=== PATIENT | male | born 1975 | race African-American/Black ===

== ENCOUNTER → 2016-11-29 | Day surgery (SDC) | payer OTHER ==
[~2016-11-29] VITALS: Ht 177.8 cm; Wt 100.7 kg
[~2016-11-29] MED LIST: ACETAMINOPH W/CODEINE #3 TAB UD PO PRN; BUPIVACAINE HCL 0.5% 10 ML VIAL XX ONE; BUPIVACAINE/EPIN 0.5% 30 ML VIAL As Ordered ONE; EPINEPHrine 1MG/ML INJ 30ML MD-VIAL As Ordered ONE; EPINEPHrine 1MG/ML INJ 30ML MD-VIAL XX ONE; HYDROmorphone HCL 2 MG/ML 1ML VIAL (J1170) As Ordered ONE; LIDOCAINE W/EPINEPHRINE 1% 20ML VIAL As Ordered ONE; LIDOCAINE W/EPINEPHRINE 1% 20ML VIAL XX ONE; LR 1,000 ML IV SCH; METHYLENE BLUE 1% 10 ML VIAL (Q9968) XX ONE; METOCLOPRAMIDE INJ 10MG/2ML VIAL (J2765) As Ordered ONE; MIDAZOLAM INJ 2 MG/2 ML VIAL (J2250) As Ordered ONE; ONDANSETRON 4MG/2ML VIAL (J2405) As Ordered ONE; ONDANSETRON 4MG/2ML VIAL (J2405) IV PRN; PERCOCET 5MG/325MG TAB PO PRN; PHENYLephrine HCL 500 MCG/5 ML (100MCG/ML) SYRINGE (J2370) As Ordered ONE; PROPOFOL 200 MG/20 ML VIAL As Ordered ONE; ROCURONIUM BROMIDE 50 MG/5 ML VIAL As Ordered ONE; dexameTHASONE 4 MG/ML 1ML VIAL (J1100) As Ordered ONE; ePHEDrine SULFATE 25 MG/5 ML(5MG/ML) SYRINGE As Ordered ONE; fentaNYL 100 MCG/2 ML INJECTION (J3010) As Ordered ONE; fentaNYL 100 MCG/2 ML INJECTION (J3010) IV PRN
[2016-11-29] MEDS: LR 1,000 ML IV SCH ×2 (07:00→07:57)
[2016-11-29 13:05] VITALS: BP 126/73
--- NOTE | 2016-11-29 14:02 | RO ---
DATE OF PROCEDURE: 11/29/2016 PREPROCEDURE DIAGNOSES: Recurrent tonsillitis, nasal septal deviation, chronic rhinitis. POSTPROCEDURE DIAGNOSES: Recurrent tonsillitis, nasal septal deviation, chronic rhinitis. PROCEDURE: Tonsillectomy, septoplasty, bilateral turbinectomy. SURGEON: Johann Goodrich MD DISEASE CASE MANAGER RN: ANESTHESIA: General. DESCRIPTION OF PROCEDURE: Under general anesthesia, the patient was draped in the usual manner. A Edmond-Phillip mouth gag was inserted. The tonsillar area was infiltrated with lidocaine and 0.5% Marcaine. Using a Coblator setting at 6 and 4, the tonsil was dissected free from the bed on both sides. The areas were cauterized with a setting of 4 on the Coblator. No blood loss. Nasogastric tube was passed to suction the upper esophagus. The Edmond-Phillip mouth gag was removed. I did suction the upper esophagus with a nasogastric tube. I used pledgets of adrenaline 1:100,000 and infiltrated with Lidocaine and epinephrine. An incision was made on the septum on the left side and elevated subperichondrial, periosteal plane. I removed a portion of the cartilage and bone, which were deviated toward that left side. Once this was done, I closed the incision with interrupted #4-0 Vicryl. Incision made in the inferior turbinate on both sides and using the , I removed the julisa anteriorly on both sides. The patient tolerated the procedure well. The patient was extubated and transferred to the recovery room in excellent condition. Less than 20 mL of estimated blood loss.
== END | disposition home or self-care (01) ==
LOC: M SDC 07:01
PROVIDERS: ATTEND Otolaryngology
DX: J35.01 Chronic tonsillitis (principal); J34.2 Deviated nasal septum; J31.0 Chronic rhinitis; F43.10 Post-traumatic stress disorder, unspecified; G47.9 Sleep disorder, unspecified
CPT/HCPCS: 30130; 30520; 42826; 88300; 88302; J1100; J1170; J2250; J2370; J2405; J2765; J3010; Q9968

== ENCOUNTER → 2016-12-05 | Outpatient (REF) ==
--- NOTE | 2016-12-06 05:48 | REP ---
Clinical: Pain and disability. Technique: Internal rotation, external rotation, and Y view. Findings: A small 2 mm periarticular calcification is identified at the acromioclavicular joint. The examination is otherwise normal and without further overt degenerative changes appreciated. No acute or healed fracture. No evidence for dislocation. Surrounding soft tissues unremarkable. Impression: Very minimal age-related degenerative changes suggested. Signed by Noah Dexter MD 12/06/2016 05:39 A
--- NOTE | 2016-12-06 05:51 | REP ---
Clinical: Pain and disability. Technique: AP, lateral, flexion/extension, bilateral oblique, and open mouth views. Findings: Advanced focal degenerative disc osteophyte complex at the C6-7 and C7-T1 levels includes osteophyte formation, endplate sclerosis/irregularity, and disc space narrowing. Remainder examination is relatively normal for age. No acute fracture / compression injury. Alignment and lordosis maintained. Impression: Advanced focal degenerative disc disease at the C6-7 and C7-T1 levels. Signed by Noah Dexter MD 12/06/2016 05:42 A
--- NOTE | 2016-12-06 05:53 | REP ---
Clinical: Pain and disability. Technique: Ganesh Lora, and ISRA, and lateral views of the sinuses. Findings: The osseous structures are intact and normal. Nasal septum is midline. There appears to be mucosal thickening to the left maxillary sinus and to a lesser extent possibly involving the right maxillary sinus and frontal sinuses. No fluid level. No foreign body. Impression: Mucoperiosteal changes involving the left maxillary sinus and possibly right maxillary sinus and frontal sinuses. Signed by Noah Dexter MD 12/06/2016 05:44 A
--- NOTE | 2016-12-06 05:54 | REP ---
Clinical: Chest pain . Comparison: None . Technique: PA and lateral. Findings: The mediastinum and cardiac silhouette are normal. The lung mojica are clear and without acute consolidation, effusion, or pneumothorax. The skeletal structures are intact and normal. Impression: 1. No acute cardiopulmonary process. Signed by Noah Dexter MD 12/06/2016 05:44 A
--- NOTE | 2016-12-06 05:55 | REP ---
Clinical: Pain and disability. Technique: AP and lateral views of the right and left knee. Findings: Mild arthritic degenerative changes include increased sclerosis to the bilateral tibial surfaces, spurring to the left tibial spines as well as spurring along the margins of the bilateral patella. Remainder examination appears normal for age. Impression: Mild degenerative changes. Signed by Noah Dexter MD 12/06/2016 05:47 A
--- NOTE | 2016-12-06 06:37 | REP ---
Clinical: Pain and disability. Technique: AP, lateral, coned-down views of the lumbosacral spine. Findings: Endplate sclerosis and anterior spurring with disc space narrowing at the L1-2 level. Remainder of the lumbosacral spine appears normal. Impression: Mild degenerative changes at the L1-2 level Signed by Noah Dexter MD 12/06/2016 06:29 A
== END ==
LOC: M SMT 15:29
PROVIDERS: ATTEND Internal Medicine
DX: Z02.71 Encounter for disability determination (principal)

== ENCOUNTER → 2018-04-29 | Outpatient (REF) | payer OTHER ==
[2018-04-29 13:26] LABS: CHOLESTEROL LEVEL 212 MG/DL (<200); CHOLESTEROL RISK RATIO 3.312 (<5); HDL CHOLESTEROL 64 MG/DL (>40); NON-HDL-C 148 MG/DL; TRIGLYCERIDES LEVEL 75 MG/DL (<150)
[2018-04-29 14:04] LABS: HIV 1&2 SCREEN CENTAUR NEGATIVE (NEGATIVE)
[2018-04-29 14:24] LABS: ESTIMATED AVERAGE GLUCOSE 126 MG/DL (60-110)
[2018-04-29 16:48] LABS: CHLAMYDIA DNA AMPLIFICATION NEGATIVE (NEGATIVE); GC DNA AMPLIFICATION NEGATIVE (NEGATIVE)
== END ==
LOC: M SFHCPLAZ 09:18
DX: Z71.1 Person with feared health complaint in whom no diagnosis is made (principal); Z13.1 Encounter for screening for diabetes mellitus; Z13.220 Encounter for screening for lipoid disorders

== ENCOUNTER 2018-07-03 11:16 | Emergency (ER) | payer OTHER ==
[2018-07-03] MEDS: LIDOCAINE 2% W/EPIN INJ 20ML **PRES FREE INJ (12:45)
== END 2018-07-03 13:27 | disposition home or self-care (01) ==
LOC: M ED 11:16
DX: S61.412A Laceration without foreign body of left hand, initial encounter (principal); W26.9XXA Contact with unspecified sharp object(s), initial encounter; Y92.090 Kitchen in other non-institutional residence as the place of occurrence of the external cause; Y93.89 Activity, other specified; Y99.9 Unspecified external cause status; M06.9 Rheumatoid arthritis, unspecified
CPT/HCPCS: 12001

== ENCOUNTER → 2018-12-05 | Outpatient (REF) | payer OTHER ==
[2018-12-05 13:52] LABS: HEMOGLOBIN A1c 6.1 %
== END ==
LOC: M SFHCPLAZ 11:32
PROVIDERS: ATTEND Family Medicine
DX: R73.03 Prediabetes (principal)

== ENCOUNTER → 2018-12-11 | Outpatient (CLI) | payer OTHER ==
--- NOTE | 2018-12-11 22:04 | REP ---
Clinical: Paresthesia. Technique: AP, lateral, flexion/extension, bilateral oblique, open-mouth and swimmer's views of the cervical spine. Comparison: 12/05/2016. Findings: Moderate to early advanced degenerative disc osteophyte complex at C6-7 and C7-T1 are again identified with endplate sclerosis and disc space narrowing. Mild/moderate disc osteophyte complex noted at the C5-6 level which represents a relatively new finding. Alignment is maintained. There is no acute fracture / compression injury or subluxation. Open mouth view demonstrates normal C1-C2 articulation and odontoid process. Oblique views demonstrate patent neural foramen. Impression: Moderate/advanced degenerative changes at the C5-6 through C7-T1 levels. Electronically Signed by Noah Dexter MD 12/11/2018 09:56 P
== END ==
LOC: M RAD 09:18
PROVIDERS: ATTEND Family Medicine
DX: R20.0 Anesthesia of skin (principal); M50.30 Other cervical disc degeneration, unspecified cervical region

== ENCOUNTER → 2019-01-21 | Outpatient (REF) | payer OTHER ==
[2019-01-21 14:22] LABS: HEMOGLOBIN A1c 5.9 %
== END ==
LOC: M SFHCPLAZ 10:38
PROVIDERS: ATTEND Family Medicine
DX: R73.03 Prediabetes (principal)

== ENCOUNTER 2022-04-03 15:40 | Emergency (ER) | payer OTHER ==
[~2022-04-03] VITALS: Ht 177.8 cm; Wt 130.3 kg
[2022-04-03 15:48] VITALS: BP 141/78
[2022-04-03] MEDS ORDERED: NS 1,000 ML IV ONE (15:50)
[2022-04-03] MEDS ORDERED: ceFAZolin SOD 2 GM in IV 1 EA IV ONE (16:05)
[2022-04-03] MEDS ORDERED: BOOSTRIX/ADACEL VACCINE (DIPHTH/PERTUSS/ACELL/TETANUS) 0.5ML SYR IM ONE (16:05)
[2022-04-03] MEDS ORDERED: ISOVUE-370 76% 100ML VIAL As Ordered ONE (16:08)
[2022-04-03 16:23] LABS: BASO % 0.4 % (0.0-1.0); EOS # 0.1 10^3/uL (0.0-0.5); HEMATOCRIT 41.3 % (42.0-52.0); HEMOGLOBIN 14.2 g/dl (13.5-17.5); LYMPH # 2.7 10^3/uL (1.5-5.0); LYMPH % 38.5 % (24.0-44.0); MEAN CORPUSCULAR HEMOGLOBIN 29.7 pg (27.0-33.0); MEAN CORPUSCULAR HGB CONC 34.4 g/dl (32.0-36.5); MEAN CORPUSCULAR VOLUME 86.4 fl (80.0-96.0); MONO # 0.8 10^3/uL (0.0-0.8); MONO % 11.2 % (2.0-8.0); NEUTROPHILS # 3.4 10^3/uL (1.5-8.5); NEUTROPHILS % 48.6 % (36.0-66.0); PLATELET COUNT, AUTOMATED 305 10^3/uL (150-450); RED BLOOD COUNT 4.78 10^6/uL (4.30-6.10); WHITE BLOOD COUNT 6.9 10^3/uL (4.0-10.0)
[2022-04-03 16:41] LABS: ALBUMIN 3.7 GM/DL (3.2-5.2); ALT/SGPT 43 U/L (12-78); AMYLASE 120 U/L (25-115); BILIRUBIN,DIRECT 0.1 MG/DL (0.0-0.2); BILIRUBIN,TOTAL 0.3 MG/DL (0.2-1.0); BLOOD UREA NITROGEN 13 MG/DL (7-18); CALCIUM LEVEL 9.1 MG/DL (8.5-10.1); CARBON DIOXIDE LEVEL 24 MEQ/L (21-32); CHLORIDE LEVEL 109 MEQ/L (98-107); CREATININE FOR GFR 1.28 MG/DL (0.70-1.30); GLOMERULAR FILTRATION RATE > 60.0 (>60); GLUCOSE, FASTING 117 MG/DL (70-100); LIPASE 111 U/L (73-393); SODIUM LEVEL 140 MEQ/L (136-145); TOTAL PROTEIN 6.8 GM/DL (6.4-8.2)
[2022-04-03 16:50] LABS: INR 1.09; PROTHROMBIN TIME 14.5 SECONDS (12.7-14.5)
[2022-04-03 16:51] LABS: PARTIAL THROMBOPLASTIN TIME 24.2 SECONDS (25.9-37.0)
[2022-04-03 17:46] LABS: RSV AMPLIFICATION NEGATIVE (NEGATIVE)
== END 2022-04-03 18:50 | disposition home or self-care (01) ==
LOC: M ED 15:40
DX: S81.831A Puncture wound without foreign body, right lower leg, initial encounter (principal); W32.0XXA Accidental handgun discharge, initial encounter; Y92.89 Other specified places as the place of occurrence of the external cause; Y99.0 Civilian activity done for income or pay; J30.2 Other seasonal allergic rhinitis
CPT/HCPCS: 73564; 73590; 73706; 80047; 80048; 80076; 82150; 83605; 83690; 85025; 85610; 85730; 86850; 86900; 86901; 87631; 90471; 90715; 93041; 94760; 96365; 96366; 99284; J0690; Q9967

== ENCOUNTER 2022-05-17 08:45 | Outpatient (RCR) | payer OTHER | END 2022-05-18 | LOC: M PT 08:45 | PROVIDERS: ATTEND Orthopaedic Surgery Hand Surgery | DX: S81.831D Puncture wound without foreign body, right lower leg, subsequent encounter (principal) ==

== ENCOUNTER 2022-06-13 14:30 | Outpatient (RCR) | payer OTHER | END 2022-06-18 | LOC: M PT 14:30 | PROVIDERS: ATTEND Orthopaedic Surgery Hand Surgery | DX: S81.831D Puncture wound without foreign body, right lower leg, subsequent encounter (principal) ==

== ENCOUNTER → 2023-09-20 | Outpatient (CLI) | payer OTHER ==
[2023-09-20 09:36] LABS: BASO % 0.4 % (0.0-1.0); EOS % 0.6 % (0.0-3.0); HEMATOCRIT 44.6 % (42.0-52.0); HEMOGLOBIN 15.1 g/dl (13.5-17.5); LYMPH # 1.9 10^3/uL (1.5-5.0); LYMPH % 27.7 % (24.0-44.0); MEAN CORPUSCULAR HEMOGLOBIN 29.7 pg (27.0-33.0); MEAN CORPUSCULAR HGB CONC 33.9 g/dl (32.0-36.5); MEAN CORPUSCULAR VOLUME 87.8 fl (80.0-96.0); MONO # 0.6 10^3/uL (0.0-0.8); MONO % 9.3 % (2.0-8.0); NEUTROPHILS # 4.2 10^3/uL (1.5-8.5); NEUTROPHILS % 61.7 % (36.0-66.0); PLATELET COUNT, AUTOMATED 292 10^3/uL (150-450); RED BLOOD COUNT 5.08 10^6/uL (4.30-6.10); WHITE BLOOD COUNT 6.8 10^3/uL (4.0-10.0)
[2023-09-20 09:57] LABS: ALBUMIN 4.1 G/DL (3.2-5.2); ALKALINE PHOSPHATASE 51 U/L (46-116); ALT/SGPT 40 U/L (7.0-40); AST/SGOT 22 U/L (<34); BILIRUBIN,TOTAL 0.5 MG/DL (0.3-1.2); BLOOD UREA NITROGEN 15 MG/DL (9-23); CALCIUM LEVEL 9.8 MG/DL (8.5-10.1); CARBON DIOXIDE LEVEL 28 MMOL/L (20-31); CHLORIDE LEVEL 105 MMOL/L (98-107); CHOLESTEROL LEVEL 215 MG/DL (<200); CHOLESTEROL RISK RATIO 3.62 (<5); CREATININE FOR GFR 1.11 MG/DL (0.70-1.30); GLOMERULAR FILTRATION RATE > 60.0 (>60); GLUCOSE, FASTING 100 MG/DL (60-100); HDL CHOLESTEROL 59.3 MG/DL (>40); LDL CHOLESTEROL 141.9 MG/DL (<100); NON-HDL-C 155.7 MG/DL; POTASSIUM SERUM 4.4 MMOL/L (3.5-5.1); SODIUM LEVEL 139 MMOL/L (136-145); TOTAL PROTEIN 7.2 G/DL (5.7-8.2); TRIGLYCERIDES LEVEL 69 MG/DL (<150)
[2023-09-20 09:59] LABS: FREE T4 0.87 NG/DL (0.89-1.76); THYROID STIMULATING HORMONE 0.969 uIU/ML (0.55-4.78)
== END ==
LOC: M LAB 08:19
PROVIDERS: ATTEND Nurse Practitioner Family
DX: E78.2 Mixed hyperlipidemia (principal); R73.03 Prediabetes; K21.9 Gastro-esophageal reflux disease without esophagitis

== ENCOUNTER → 2023-11-06 | Outpatient (CLI) | payer OTHER | LOC: M RAD 07:52 | PROVIDERS: ATTEND Nurse Practitioner Family | DX: M50.323 Other cervical disc degeneration at C6-C7 level (principal); M99.61 Osseous and subluxation stenosis of intervertebral foramina of cervical region ==

== ENCOUNTER → 2023-12-14 | Outpatient (CLI) | payer OTHER | LOC: M PLARAD 09:55 | PROVIDERS: ATTEND Nurse Practitioner Family | DX: M47.22 Other spondylosis with radiculopathy, cervical region (principal); M48.02 Spinal stenosis, cervical region; M50.121 Cervical disc disorder at C4-C5 level with radiculopathy; M50.122 Cervical disc disorder at C5-C6 level with radiculopathy; M50.21 Other cervical disc displacement, high cervical region ==

== ENCOUNTER → 2024-05-21 | Outpatient (CLI) | payer OTHER | LOC: M SLEEP HO 11:04 | PROVIDERS: ATTEND Family Medicine | DX: R06.83 Snoring (principal) ==

== ENCOUNTER → 2024-10-23 | Outpatient (CLI) | payer OTHER ==
[2024-10-24 09:50] LABS: BASO % 0.6 % (0.0-1.0); EOS % 0.5 % (0.0-3.0); HEMATOCRIT 45.1 % (42.0-52.0); HEMOGLOBIN 14.7 g/dl (13.5-17.5); LYMPH % 29.9 % (24.0-44.0); MEAN CORPUSCULAR HEMOGLOBIN 29.3 pg (27.0-33.0); MEAN CORPUSCULAR HGB CONC 32.6 g/dl (32.0-36.5); MEAN CORPUSCULAR VOLUME 89.8 fl (80.0-96.0); MONO # 0.8 10^3/uL (0.0-0.8); MONO % 11.6 % (2.0-8.0); NEUTROPHILS # 3.8 10^3/uL (1.5-8.5); NEUTROPHILS % 57.1 % (36.0-66.0); PLATELET COUNT, AUTOMATED 325 10^3/uL (150-450); RED BLOOD COUNT 5.02 10^6/uL (4.30-6.10); WHITE BLOOD COUNT 6.7 10^3/uL (4.0-10.0)
[2024-10-24 09:54] LABS: ALBUMIN 3.9 G/DL (3.2-5.2); ALKALINE PHOSPHATASE 60 U/L (40-129); ALT/SGPT 58 U/L (7.0-40); AST/SGOT 34 U/L (<34); BILIRUBIN,TOTAL 0.3 MG/DL (0.3-1.2); BLOOD UREA NITROGEN 18 MG/DL (9-23); CALCIUM LEVEL 9.7 MG/DL (8.5-10.1); CARBON DIOXIDE LEVEL 30 MMOL/L (20-31); CHLORIDE LEVEL 108 MMOL/L (98-107); CHOLESTEROL LEVEL 237 MG/DL (<200); CHOLESTEROL RISK RATIO 5.83 (<5); CREATININE FOR GFR 1.29 MG/DL (0.70-1.30); GLOMERULAR FILTRATION RATE > 60.0 (>60); GLUCOSE, FASTING 112 MG/DL (60-100); HDL CHOLESTEROL 40.6 MG/DL (>40); LDL CHOLESTEROL 154.4 MG/DL (<100); NON-HDL-C 196.4 MG/DL; POTASSIUM SERUM 4.3 MMOL/L (3.5-5.1); SODIUM LEVEL 145 MMOL/L (136-145); TOTAL PROTEIN 7.4 G/DL (5.7-8.2); TRIGLYCERIDES LEVEL 210 MG/DL (<150)
[2024-10-24 09:58] LABS: FREE T4 1.13 NG/DL (0.89-1.76); THYROID STIMULATING HORMONE 1.656 uIU/ML (0.55-4.78)
[2024-10-24 10:09] LABS: HEMOGLOBIN A1c 6.9 % (4.0-6.0)
[2024-10-24 10:15] LABS: HEPATITIS B SURFACE ANTIGEN NEGATIVE (NEGATIVE)
[2024-10-24 10:28] LABS: HIV 1&2 SCREEN NEGATIVE (NEGATIVE)
[2024-10-24 10:37] LABS: HEPATITIS B CORE ANTIBODY IGM NEGATIVE (NEGATIVE)
[2024-10-24 10:42] LABS: HEPATITIS C VIRUS ABY INDEX < 0.02 INDEX (<0.8)
[2024-10-24 11:48] LABS: GC DNA AMPLIFICATION NEGATIVE (NEGATIVE)
[2024-10-24 12:23] LABS: Trichomonas vaginalis (AMP) NOT DETECTED (NEGATIVE)
== END ==
LOC: M PLALAB 16:39
PROVIDERS: ATTEND Nurse Practitioner Family
DX: E78.2 Mixed hyperlipidemia (principal); E03.9 Hypothyroidism, unspecified; R73.03 Prediabetes

== ENCOUNTER → 2025-03-12 | Outpatient (CLI) | payer OTHER ==
[2025-03-12 16:30] LABS: BASO % 0.6 % (0.0-1.0); EOS % 0.4 % (0.0-3.0); HEMATOCRIT 41.8 % (42.0-52.0); HEMOGLOBIN 13.9 g/dl (13.5-17.5); LYMPH # 1.8 10^3/uL (1.5-5.0); LYMPH % 35.2 % (24.0-44.0); MEAN CORPUSCULAR HEMOGLOBIN 29.1 pg (27.0-33.0); MEAN CORPUSCULAR HGB CONC 33.3 g/dl (32.0-36.5); MEAN CORPUSCULAR VOLUME 87.6 fl (80.0-96.0); MONO # 0.6 10^3/uL (0.0-0.8); MONO % 10.8 % (2.0-8.0); NEUTROPHILS # 2.7 10^3/uL (1.5-8.5); NEUTROPHILS % 52.8 % (36.0-66.0); PLATELET COUNT, AUTOMATED 275 10^3/uL (150-450); RED BLOOD COUNT 4.77 10^6/uL (4.30-6.10); WHITE BLOOD COUNT 5.1 10^3/uL (4.0-10.0)
[2025-03-12 16:44] LABS: HEMOGLOBIN A1c 5.8 % (4.0-6.0)
[2025-03-12 16:47] LABS: ALBUMIN 3.9 G/DL (3.2-5.2); BILIRUBIN,TOTAL 0.9 MG/DL (0.3-1.2); CALCIUM LEVEL 8.8 MG/DL (8.5-10.1); CHOLESTEROL RISK RATIO 4.36 (<5); CREATININE FOR GFR 1.06 MG/DL (0.70-1.30); GLOMERULAR FILTRATION RATE 86.6 (>60); HDL CHOLESTEROL 43.5 MG/DL (>40); LDL CHOLESTEROL 129.3 MG/DL (<100); NON-HDL-C 146.5 MG/DL; POTASSIUM SERUM 3.8 MMOL/L (3.5-5.1); TOTAL PROTEIN 6.9 G/DL (5.7-8.2)
[2025-03-14 11:57] LABS: C-PEPTIDE 1.68 ng/mL (0.80-3.85)
== END ==
LOC: M LAB 15:40
PROVIDERS: ATTEND Nurse Practitioner Family
DX: E11.9 Type 2 diabetes mellitus without complications (principal)

== ENCOUNTER → 2025-06-17 | Outpatient (CLI) | payer OTHER ==
[2025-06-17 17:11] LABS: CREATININE, URINE 170.5 MG/DL; MALB URINE SIEMENS < 3.0 MG/L
[2025-06-17 17:13] LABS: ALT/SGPT 40.0 U/L (7.0-40); AST/SGOT 32.0 U/L (<34); CALCIUM LEVEL 9.2 MG/DL (8.5-10.1); CARBON DIOXIDE LEVEL 26.0 MMOL/L (20-31); CHLORIDE LEVEL 103.0 MMOL/L (98-107); CHOLESTEROL LEVEL 205.0 MG/DL (<200); CHOLESTEROL RISK RATIO 3.82 (<5); CREATININE FOR GFR 1.06 MG/DL (0.70-1.30); GLOMERULAR FILTRATION RATE 86.6 (>60); LDL CHOLESTEROL 135.2 MG/DL (<100); NON-HDL-C 151.4 MG/DL; POTASSIUM SERUM 4.1 MMOL/L (3.5-5.1); SODIUM LEVEL 140.0 MMOL/L (136-145); TRIGLYCERIDES LEVEL 81.0 MG/DL (<150)
[2025-06-17 17:15] LABS: FREE T4 1.19 NG/DL (0.89-1.76)
[2025-06-17 17:22] LABS: ESTIMATED AVERAGE GLUCOSE 128.0 MG/DL (60-110)
== END ==
LOC: M LAB 15:48
PROVIDERS: ATTEND Nurse Practitioner Family
DX: E11.9 Type 2 diabetes mellitus without complications (principal); R53.83 Other fatigue

== ENCOUNTER → 2025-10-09 | Outpatient (CLI) | payer OTHER ==
[~2025-10-09] MED LIST changes: -ACETAMINOPH W/CODEINE #3 TAB UD PO PRN; +AMLO2.5T3 PO; -BUPIVACAINE HCL 0.5% 10 ML VIAL XX ONE; -BUPIVACAINE/EPIN 0.5% 30 ML VIAL As Ordered ONE; -EPINEPHrine 1MG/ML INJ 30ML MD-VIAL As Ordered ONE; -EPINEPHrine 1MG/ML INJ 30ML MD-VIAL XX ONE; -HYDROmorphone HCL 2 MG/ML 1ML VIAL (J1170) As Ordered ONE; -LIDOCAINE W/EPINEPHRINE 1% 20ML VIAL As Ordered ONE; -LIDOCAINE W/EPINEPHRINE 1% 20ML VIAL XX ONE; -LR 1,000 ML IV SCH; +METF500T13 PO; -METHYLENE BLUE 1% 10 ML VIAL (Q9968) XX ONE; -METOCLOPRAMIDE INJ 10MG/2ML VIAL (J2765) As Ordered ONE; -MIDAZOLAM INJ 2 MG/2 ML VIAL (J2250) As Ordered ONE; -ONDANSETRON 4MG/2ML VIAL (J2405) As Ordered ONE; -ONDANSETRON 4MG/2ML VIAL (J2405) IV PRN; -PERCOCET 5MG/325MG TAB PO PRN; -PHENYLephrine HCL 500 MCG/5 ML (100MCG/ML) SYRINGE (J2370) As Ordered ONE; -PROPOFOL 200 MG/20 ML VIAL As Ordered ONE; -ROCURONIUM BROMIDE 50 MG/5 ML VIAL As Ordered ONE; -dexameTHASONE 4 MG/ML 1ML VIAL (J1100) As Ordered ONE; -ePHEDrine SULFATE 25 MG/5 ML(5MG/ML) SYRINGE As Ordered ONE; -fentaNYL 100 MCG/2 ML INJECTION (J3010) As Ordered ONE; -fentaNYL 100 MCG/2 ML INJECTION (J3010) IV PRN
[2025-10-09 17:47] LABS: BASO # 0.0 10^3/uL (0.0-0.2); BASO % 0.8 % (0.0-1.0); EOS # 0.1 10^3/uL (0.0-0.5); EOS % 1.1 % (0.0-3.0); LYMPH # 2.1 10^3/uL (1.5-5.0); LYMPH % 39.7 % (24.0-44.0); MONO # 0.5 10^3/uL (0.0-0.8); MONO % 9.5 % (2.0-8.0); NEUTROPHILS # 2.6 10^3/uL (1.5-8.5); NEUTROPHILS % 48.7 % (36.0-66.0); PLATELET COUNT, AUTOMATED 294 10^3/uL (150-450)
[2025-10-09 18:05] LABS: CREATININE, URINE 62.6 MG/DL; MALB URINE SIEMENS < 3.0 MG/L
[2025-10-09 18:11] LABS: ALT/SGPT 30.0 U/L (7.0-40); AST/SGOT 20.0 U/L (<34); CALCIUM LEVEL 9.1 MG/DL (8.5-10.1); CARBON DIOXIDE LEVEL 29.0 MMOL/L (20-31); CHLORIDE LEVEL 101.0 MMOL/L (98-107); CHOLESTEROL LEVEL 179.0 MG/DL (<200); CHOLESTEROL RISK RATIO 3.23 (<5); CREATININE FOR GFR 1.13 MG/DL (0.70-1.30); GLOMERULAR FILTRATION RATE 80.2 (>60); LDL CHOLESTEROL 109.5 MG/DL (<100); MAGNESIUM LEVEL 2.0 MG/DL (1.8-2.4); NON-HDL-C 123.7 MG/DL; POTASSIUM SERUM 4.0 MMOL/L (3.5-5.1); SODIUM LEVEL 139.0 MMOL/L (136-145); TOTAL 25(OH) VITAMIN D 27.5 NG/ML (20.0-100.0); TRIGLYCERIDES LEVEL 71.0 MG/DL (<150)
[2025-10-09 18:13] LABS: FREE T4 1.23 NG/DL (0.89-1.76)
[2025-10-09 18:17] LABS: ESTIMATED AVERAGE GLUCOSE 120.0 MG/DL (60-110)
[2025-10-09 18:18] LABS: VITAMIN B12 LEVEL 330.0 PG/ML (211-911)
== END ==
LOC: M LAB 15:19
PROVIDERS: ATTEND Nurse Practitioner Family
DX: E55.9 Vitamin D deficiency, unspecified (principal); E53.8 Deficiency of other specified B group vitamins; I10 Essential (primary) hypertension; E11.9 Type 2 diabetes mellitus without complications; E78.2 Mixed hyperlipidemia; E03.8 Other specified hypothyroidism

== ENCOUNTER 2025-10-19 11:02 | Day surgery (SDC) | payer OTHER ==
[~2025-10-19] VITALS: Ht 177.8 cm; Wt 119.6 kg
[2025-10-19] MEDS ORDERED: LIDOCAINE 2% 100 MG/5 ML SDV (FOR ANES.) As Ordered ONE (11:42)
[2025-10-19 11:43] VITALS: TEMP 97.3
[2025-10-19 12:00] VITALS: BP 112/56; O2SAT 97
== END 2025-10-19 12:20 | disposition home or self-care (01) ==
LOC: M OPP 11:02
PROVIDERS: ATTEND Surgery
DX: Z12.11 Encounter for screening for malignant neoplasm of colon (principal); K63.89 Other specified diseases of intestine; G47.30 Sleep apnea, unspecified; Z79.84 Long term (current) use of oral hypoglycemic drugs; Z79.899 Other long term (current) drug therapy
CPT/HCPCS: 45378; G0463